=== PATIENT | male | born 1975 | race Caucasian/White ===

== ENCOUNTER 2021-07-01 02:38 | Emergency (ER) | payer SELFPAY ==
[~2021-07-01] VITALS: Ht 170.2 cm; Wt 91.0 kg
[2021-07-01] MEDS ORDERED: BACITRACIN ZINC OINT UDPKT TOP ONE (02:45)
[2021-07-01] MEDS ORDERED: TETANUS, DIPHTHERIA, PERTUSSIS VAC/PF 0.5ML (>10YR OLD) IM ONE (02:45)
[2021-07-01] MEDS ORDERED: AMOX-424 MT ×2 (05:15→11:53)
[2021-07-01] MEDS ORDERED: BO1 TP (05:15)
[2021-07-01 05:30] VITALS: BP 135/86
== END 2021-07-01 05:30 | disposition home or self-care (01) ==
LOC: ER 02:38
DX: S01.01XA Laceration without foreign body of scalp, initial encounter (principal); Y08.89XA Assault by other specified means, initial encounter; Y93.89 Activity, other specified; Y92.89 Other specified places as the place of occurrence of the external cause; Y99.8 Other external cause status
CPT/HCPCS: 12002; 70450; 70486; 72125; 90471; 90715; 99284; Z7610

== ENCOUNTER 2021-07-03 17:28 | Emergency (ER) | payer MEDICAID ==
[~2021-07-03] VITALS: Ht 172.7 cm; Wt 105.0 kg
[~2021-07-03 17:28] MED LIST: AMOX-424 MT; BO1 TP
[2021-07-03 17:32] VITALS: BP 152/96
== END 2021-07-03 19:15 | disposition home or self-care (01) ==
LOC: ER 17:28
DX: Z48.00 Encounter for change or removal of nonsurgical wound dressing (principal)
CPT/HCPCS: 99281

== ENCOUNTER 2021-07-13 20:45 | Emergency (ER) | payer MEDICAID ==
[~2021-07-13] VITALS: Ht 170.2 cm; Wt 122.5 kg
[2021-07-14 01:23] VITALS: BP 126/81
== END 2021-07-14 01:24 | disposition home or self-care (01) ==
LOC: ER 20:45
DX: Z48.02 Encounter for removal of sutures (principal)
CPT/HCPCS: 99281